=== PATIENT | female | born 1980 | race Caucasian/White ===

== ENCOUNTER 2019-04-23 16:17 | Outpatient (CLI) | payer OTHER ==
[~2019-04-23] VITALS: Ht 157.5 cm; Wt 50.9 kg
[~2019-04-23 16:17] MED LIST: FERR-55 PO; PREN1TAB49
[2019-04-23 16:42] VITALS: Ht 157.5 cm; Wt 50.9 kg
[2019-04-23 16:52] VITALS: BP 97/55; PULSE 63; RESP 18
[2019-04-23] MEDS ORDERED: BETAMET NA PHOS/AC(6 MG/ML) 2 ML INJ SYG IM SCH (21:30)
== END 2019-04-23 22:35 | disposition home or self-care (01) ==
LOC: OBT 16:17 → L-D 16:30 → OBT 22:35
PROVIDERS: ATTEND Obstetrics & Gynecology
DX: O36.5920 Maternal care for other known or suspected poor fetal growth, second trimester, not applicable or unspecified (principal); Z3A.26 26 weeks gestation of pregnancy; O99.282 Endocrine, nutritional and metabolic diseases complicating pregnancy, second trimester; E07.9 Disorder of thyroid, unspecified
CPT/HCPCS: 76815; 76817; 76820; 84436; 84439; 84443; 84481; 86376; J0702; Z7500; G0463

== ENCOUNTER 2019-04-24 21:36 | Outpatient (CLI) | payer OTHER ==
[~2019-04-24] VITALS: Ht 157.5 cm; Wt 51.2 kg
[2019-04-24 22:21] VITALS: Ht 157.5 cm; Wt 51.2 kg
[2019-04-24 22:22] VITALS: BP 93/55; PULSE 65; RESP 18
[2019-04-24] MEDS ORDERED: BETAMET NA PHOS/AC(6 MG/ML) 2 ML INJ SYG IM SCH (22:30)
== END 2019-04-24 23:01 | disposition home or self-care (01) ==
LOC: OBT 21:36 → L-D 21:37 → OBT 23:01
PROVIDERS: ATTEND Obstetrics & Gynecology
DX: O36.5920 Maternal care for other known or suspected poor fetal growth, second trimester, not applicable or unspecified (principal); Z3A.26 26 weeks gestation of pregnancy
CPT/HCPCS: 96372; J0702; Z7500; G0463